=== PATIENT | male | born 1935 | race Hispanic/Latino ===

== ENCOUNTER 2017-07-12 14:25 | Emergency (ER) | payer SELFPAY ==
[~2017-07-12] VITALS: Ht 175.3 cm; Wt 81.7 kg
[2017-07-12] MEDS ORDERED: ATENOLOL100 MG PO (14:36)
[2017-07-12] MEDS ORDERED: NORCO 5-325 TA1 EACH PO (14:37)
[2017-07-12] MEDS ORDERED: LIPITOR40 MG PO (14:37)
[2017-07-12] MEDS ORDERED: MULTIVITAMINS1 EAC7 PO (14:38)
== END 2017-07-12 14:51 | disposition home or self-care (01) ==
LOC: ED 14:25
DX: Z00.8 Encounter for other general examination (principal)

== ENCOUNTER 2017-07-22 21:48 | Emergency (ER) | payer MEDICARE, MEDICAID ==
[~2017-07-22] VITALS: Ht 175.3 cm; Wt 81.7 kg
[~2017-07-22 21:48] MED LIST: ATENOLOL100 MG PO; LIPITOR40 MG PO; MULTIVITAMINS1 EAC7 PO; NORCO 5-325 TA1 EACH PO
[2017-07-22] MEDS ORDERED: ASPIRIN81 MG PO (22:01)
--- NOTE | 2017-07-23 08:02 | EKG ---
[facility] [address] [place] [address] Signed Sinus rhythm with premature atrial complexes Otherwise normal ECG No previous ECGs available Confirmed by ELIZA CHRISTIANSON MD ([id number]) on 07/23/2017 8:02:24 AM Electronically Signed By: ELIZA CHRISTIANSON MD 07/23/17 0802 PATIENT NAME: GERARDO GALARZA Electrocardiogram DATE OF : 37 PHYSICIAN: ELIZA CHRISTIANSON MD REPORT #: [id number] REPORT IS CONFIDENTIAL AND NOT TO BE RELEASED WITHOUT AUTHORIZATION
== END 2017-07-22 23:26 | disposition home or self-care (01) ==
LOC: ED 21:48
DX: R07.89 Other chest pain (principal); I10 Essential (primary) hypertension; Z79.82 Long term (current) use of aspirin; Z79.899 Other long term (current) drug therapy
CPT/HCPCS: 71046; 80053; 84484; 85025; 85610; 85730; 93005; 93010; 99284

== ENCOUNTER 2017-08-11 13:45 | Emergency (ER) | payer MEDICARE, MEDICAID ==
[~2017-08-11] VITALS: Ht 175.3 cm; Wt 81.7 kg
[~2017-08-11 13:45] MED LIST changes: +ASPIRIN81 MG PO
== END 2017-08-11 14:00 | disposition home or self-care (01) ==
LOC: ED 13:45
DX: R21 Rash and other nonspecific skin eruption (principal)

== ENCOUNTER 2019-02-14 14:53 | Emergency (ER) | payer MEDICARE, MEDICAID ==
[~2019-02-14] VITALS: Ht 175.3 cm; Wt 81.7 kg
--- OUTSIDE RECORDS SUMMARY | ~2019-02-14 | XMS | Clinical Summary ---
Demographics + + + | Address | [address] | | | [place] [address] | + + + | Home Phone | | + + + | Preferred Language | Unknown | + + + | Marital Status | | + + + | Mandaeism Affiliation | Unknown | + + + | Race | Unknown | + + + | Ethnic Group | Unknown | + + + Author + + + | Author | [facility] | | | and [place] | + + + | Organization | [facility] | | | and [place] | + + + | Address | Unknown | + + + | Phone | Unavailable | + + + Support + + +---------+ + | Name | Relationship | Address | Phone | + + +---------+ + | Alpa Loving ECON | Unknown | | + + +---------+ + Care Team Providers + +------+ + | [facility] Partner Name | Role | Phone | + +------+ + | Tima Stewart | PCP | | | MD | | | + +------+ + Allergies No Known Allergies Medications + + + +---------+------+------+-------+ | Medication | Sig | Dispensed | Refills | Star | End | Statu | | | | | | t | Date | s | | | | | | Date | | | + + + +---------+------+------+-------+ | atenolol | | | 0 | 02/1 | | Activ | | (TENORMIN) 100 MG | | | | 6/20 | | e | | tablet | | | | 16 | | | + + + +---------+------+------+-------+ | | | | 0 | 01/1 | | Activ | | lisinopril-hydrochlo | | | | 9/20 | | e | | rothiazide | | | | 16 | | | | (PRINZIDE,ZESTORETIC | | | | | | | | ) 20-25 MG per | | | | | | | | tablet | | | | | | | + + + +---------+------+------+-------+ | simvastatin | | | 0 | 02/1 | | Activ | | (ZOCOR) 40 mg tablet | | | | 6/20 | | e | | | | | | 16 | | | + + + +---------+------+------+-------+ | docusate sodium | Take 200 mg by mouth | 60 | 0 | 04/2 | | Activ | | (COLACE) 100 MG | 2 times daily. | capsule | | 0/20 | | e | | capsule | | | | 16 | | | + + + +---------+------+------+-------+ | | Take 1-2 tablets by | 100 | 0 | 12/2 | | Activ | | HYDROcodone-acetamin | mouth every 4 hours | tablet | | 1/20 | | e | | ophen (NORCO) 10-325 | as needed for Pain. | | | 16 | | | | mg per tablet | | | | | | | + + + +---------+------+------+-------+ | Multiple | Take by mouth | | 0 | | | Activ | | Vitamins-Minerals | Daily. | | | | | e | | (MULTIVITAMIN PO) | | | | | | | + + + +---------+------+------+-------+ | zolpidem (AMBIEN) | Take 5 mg by mouth | | 0 | | | Activ | | 5 mg tablet | nightly as needed | | | | | e | | | for Insomnia. | | | | | | + + + +---------+------+------+-------+ Active Problems + + + | Problem | Noted Date | + + + | Osteoarthritis of right knee | 07/20/2015 | + + + | Beta Reji Use | 07/20/2015 | + + + | H/O Anemia | 07/20/2015 | + + + | Hypercholesterolemia | | + + + | Hypertension | | + + + Social History + +-------+ +--------+------+ | Tobacco Use | Types | Packs/Day | Years | Date | | | | | Used | | + +-------+ +--------+------+ | Never Smoker | | | | | + +-------+ +--------+------+ + +---+---+---+ | Smokeless Tobacco: | | | | | Never Used | | | | + +---+---+---+ + + +---------+ + | Alcohol Use | Drinks/We | oz/Week | Comments | | | ek | | | + + +---------+ + | No | | | | + + +---------+ + + + + | Sex Assigned at | Date Recorded | | | | + + + | Not on file | | + + + + + + + | Job Start Date | Occupation | Industry | + + + + | Not on file | Not on file | Not on file | + + + + + + + + | Travel History | Travel Start | Travel End | + + + + + + | No recent travel history available. | + + Last Filed Vital Signs + + + + | Vital Sign | Reading | Time Taken | + + + + | Blood Pressure | 143/66 | 07/19/20181508 PST | + + + + | Pulse | 57 | 07/19/20181508 PST | + + + + | Temperature | 36.7 C (98.1 F) | 07/19/20181508 PST | + + + + | Respiratory Rate | 18 | 07/19/20181508 PST | + + + + | Oxygen Saturation | 97% | 07/19/20181508 PST | + + + + | Inhaled Oxygen | - | - | | Concentration | | | + + + + | Weight | 93.8 kg (206 lb 12.7 | 07/19/2018 1509 PST | | | oz) | | + + + + | Height | 172.7 cm (5' 8") | 07/19/20181508 PST | + + + + | Body Mass Index | 31.44 | 07/19/20181508 PST | + + + + Plan of Treatment + + + + + | Health Maintenance | Due Date | Last Done | Comments | + + + + + | Vaccine: | | | | | Dtap/Tdap/Td (1 - | 5 | | | | Tdap) | | | | + + + + + | Vaccine: Zoster (1 | | | | | of 2) | 6 | | | + + + + + | Vaccine: | | | | | Pneumococcal 65+ | 1 | | | | Low/Medium Risk (1 | | | | | of 2 - PCV13) | | | | + + + + + | Adult Annual | | | | | Wellness Visit | 9 | | | + + + + + | Vaccine: Influenza | | | | | (#1) | 9 | | | + + + + + Implants + +------+--------+ +--------+--------+--------+ | Implanted | Type | Area | Manufacture | Device | Shelf | Model | | | | | r | | Expira | / | | | | | | Identi | tion | Serial | | | | | | fier | Date | / Lot | + +------+--------+ +--------+--------+--------+ | Luiz Bone Palacos-R 40gm - | | Right: | DEBI - | | 03/15/ | 00-111 | | [id number]: Qty: 1 on | | Knee | ZIMM | | 2019 | 2-140- | | 07/21/2015 by Zhang Pace | | | | | | 01 / | | E, MD | | | | | | /[id number] | | | | | | | | 394 | + +------+--------+ +--------+--------+--------+ | Imp Knee Stem Fem Rt 0 Sz7 - | | Right: | DEBI - | | 01/20/ | 42-502 | | [id number]: Qty: 1 on | | Knee | ZIMM | | 2024 | 6-062- | | 07/21/2015 by Zhang Pace | | | | | | 02 / | | E, MD | | | | | | /[id number] | | | | | | | | 245 | + +------+--------+ +--------+--------+--------+ | Imp Knee Ptela Polyeth 35mm - | | Right: | DEBI - | | 04/13/ | 42-540 | | [id number]: Qty: 1 | | Knee | ZIMM | | 2022 | 0-000- | | on 07/21/2015 by Sanjeev, | | | | | | 35 / | | Zhang Del Valle MD | | | | | | /[id number] | | | | | | | | 984 | + +------+--------+ +--------+--------+--------+ | Imp Knee Surf Artc 10 | | Right: | DEBI - | | 03/15/ | [id number] | | [id number] - | | Knee | ZIMM | | 2019 | 57833 | | [id number]: Qty: 1 on | | | | | | / | | 07/21/2015 by Zhang Pace | | | | | | /[id number] | | MD Ivon | | | | | | 051 | + +------+--------+ +--------+--------+--------+ | Imp Knee Tib 5deg Rt Szg - | | Right: | DEBI - | | 04/13/ | 42-532 | | [id number]: Qty: 1 on | | Knee | ZIMM | | 2025 | 0-079- | | 07/21/2015 by Zhang Pace | | | | | | 02 / | Cl Del Valle MD | | | | | | /[id number] | | | | | | | | 228 | + +------+--------+ +--------+--------+--------+ | Luiz Bone Palacos-R 40gm - | | Right: | DEBI - | | 12/12/ | 00-111 | | [id number]: Qty: 1 on | | Knee | ZIMM | | 2020 | 2-140- | | 07/21/2015 by Zhang Pace | | | | | | 01 / | | MD Ivon | | | | | | /[id number] | | | | | | | | 447 | + +------+--------+ +--------+--------+--------+ Results Not on filefrom Last 3 Months Insurance + +--------+ +--------+ +---------+--------+ | Payer | Benefi | Subscriber | Effect | Phone | Address | Type | | | t Plan | ID | josee | | | | | | / | | Dates | | | | | | Group | | | | | | + +--------+ +--------+ +---------+--------+ | MEDICARE | MEDICA | [id number] | 08/14/19 | [phone] | | Medica | | | RE | | 00-Pre | 5 | | re | | | PART A | | sent | | | | | | AND B | | | | | | + +--------+ +--------+ +---------+--------+ + +--------+ +--------+ + + | Guarantor Name | Accoun | Relation to | Date | Phone | Billing Address | | | t Type | Patient | of | | | | | | | | | | + +--------+ +--------+ + + | [place] | Person | Self [birth year] | [address] | | Bi | al/Fam | | 1935 | [phone] | | | ericka | | | 0 (Home) | [place] [address] | + +--------+ +--------+ + + Advance Directives Patient has advance care planning documents, and code status on file. For more information, please contact:[facility] [place] [address] + + + + + | Code Status | Date | Date | Comments | | | Activated | Inactivated | | + + + + + | Full Code | 07/21/2015 | 07/23/2015 | | | | 16:57 | 13:45 | | + + + + +
--- OUTSIDE RECORDS SUMMARY | ~2019-02-14 | XMS | Clinical Summary ---
Demographics + + + | Address | [address] | | | [place] [address] | + + + | Home Phone | | + + + | Preferred Language | Unknown | + + + | Marital Status | | + + + | Moravian Affiliation | Unknown | + + + | Race | Unknown | + + + | Ethnic Group | Unknown | + + + Author + + + | Author | [facility] | | | and [place] | + + + | Organization | [facility] | | | and [...] Team Providers + +------+ + | Care Flat Screen Worker Name | Role | Phone | + [...] | | 03/15/ | 00-111 | | [id number]: Qty: 1 on | | Knee | ZIMM | | 2019 | 2-140- | | 07/21/2015 by Zhang Pace | | | | | | 01 / | | E, MD | | | | | | /[id number] | | | | | | | [...] MD | | | | | | /[id number] | | | | | | | | 245 | + +------+--------+ +--------+--------+--------+ | Imp Knee Ptela Polyeth 35mm - | | Right: | DEBI - | | 04/13/ | 42-540 | | [id number]: Qty: 1 | | Knee | ZIMM | | 2022 | 0-000- | | on 07/21/2015 by aSnjeev, | | | | | | 35 / | | Zhang Del Valle MD | | | | | | /[id number] | | | | | | | | 984 | + +------+--------+ +--------+--------+--------+ | Imp Knee Surf Artc 10 | | Right: | DEBI - | | 03/15/ | [id number] | | Rt7-12gh - | | Knee | ZIMM | | 2019 | 01564 | | [id number]: Qty: 1 on | | | | | | / | | 07/21/2015 by Zhang Pace | | | | | | /[id number] | | MD Ivon | | | | | | 051 | + +------+--------+ +--------+--------+--------+ | Imp Knee Tib 5deg Rt Szg - | | Right: | DEBI - | | 04/13/ | 42-532 | | [id number]: Qty: 1 on | | Knee | ZIMM | | 2025 | 0-079- | | 07/21/2015 by Zhnag Pace | | | | | | 02 / | Cl Del Valle MD | | | | | | /[id number] | | | | | | | | 228 | + +------+--------+ +--------+--------+--------+ | Luiz Bone Palacos-R 40gm - | | Right: | DEBI - | | 12/12/ | 00-111 | | [id number]: Qty: 1 on | | Knee | ZIMM | | 2020 | 2-140- | | 07/21/2015 by Zhang Pace | | | | | | 01 / | | MD Ivon | | | | | | /[id number] | | | | | | | [...] +--------+ +---------+--------+ | MEDICARE | MEDICA | [id number] | 08/14/19 | [phone] | | Medica [...] | Self | [birth year] | [address] | | Bi | al/Fam | | 1935 | [phone] | | | [place] | | | 0 (Home) | [place] [address] | + +--------+ +--------+ + + Advance Directives Patient has advance care planning documents, and code status on file. For more information, please contact:[facility] [place] [facility] [place] [address] + + + + + | Code Status | Date | Date | Comments | | | Activated | Inactivated | | + + + + + | Full Code | 07/21/2015 | 07/23/2015 | | | | 16:57 | 13:45 | | + + + + +
--- OUTSIDE RECORDS SUMMARY | 2019-02-14 14:56 | XMS ---
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 Nakul VISIT COUNT (12 MO.) Kim Mccoy TOTAL 1 NOTE: Visits indicate total known visits. ED/UCC VISIT TRACKING (12 MO.) 02/14/2019 14:54 [facility] TYPE: Emergency COMPLAINT: - RIGHT SHOULDER PAIN, NO INJURY 07/19/2018 14:39 [facility] Urgent Care [facility] TYPE: Urgent Care DIAGNOSES: - Bloated - Procedure and treatment not carried out due to patient leaving prior to being seen by health care provider INPATIENT VISIT TRACKING (12 MO.) No inpatient visits to display in this time frame [id number]
== END 2019-02-14 15:20 | disposition home or self-care (01) ==
LOC: ED 14:53
DX: M25.511 Pain in right shoulder (principal)